=== PATIENT | female | born 1970 | race Caucasian/White ===

== ENCOUNTER 2024-08-01 04:28 | Day surgery (SDC) | payer OTHER ==
[2024-07-30 14:11] VITALS: BMI 23.8
[2024-08-01] MEDS ORDERED: ONDANSETRON 4 MG/2 ML VIAL IVPUSH PRN (09:04)
[2024-08-01] MEDS ORDERED: oxyCODONE HCL 5 MG TABLET PO PRN (09:04)
[2024-08-01] MEDS ORDERED: LACTATED RINGERS SOLUTION 1,000 ML IV SCH (09:15)
[2024-08-01] MEDS ORDERED: PROPOFOL 20 ML ONE (09:46)
[2024-08-01 13:27] VITALS: RESP 18
[2024-08-01 13:32] VITALS: BP 108/74; PULSE 73; TEMP 97.7
== END 2024-08-01 12:49 | disposition home or self-care (01) ==
LOC: JASU-SURG 04:28
PROVIDERS: ATTEND Obstetrics & Gynecology Obstetrics
PROC: 0UDB8ZX Extraction of Endometrium, Via Natural or Artificial Opening Endoscopic, Diagnostic (ICD-10-PCS; principal; 2024-08-01 09:00)
PROC: 0UB98ZZ Excision of Uterus, Via Natural or Artificial Opening Endoscopic (ICD-10-PCS; 2024-08-01 09:00)
DX: N95.0 Postmenopausal bleeding (principal); D25.9 Leiomyoma of uterus, unspecified
CPT/HCPCS: 81025; 88305-TC; 88341-TC; 88342-TC; 94760